=== PATIENT | female | born 1990 | race Two or more races ===

== ENCOUNTER 2024-01-30 19:58 | Emergency (ER) | payer MEDICAID, OTHER ==
[~2024-01-30] VITALS: Ht 157.5 cm; Wt 87.7 kg
[2024-01-30 21:14] LABS: Urine Bacteria FEW /hpf (None Seen); Urine Blood TRACE /uL (Negative); Urine Clarity Clear (Clear); Urine Color Colorless (Yellow); Urine Protein, UAD Negative (Negative); Urine Specific Gravity 1.029 (1.001-1.035); Urine Urobilinogen Normal (Negative); Urine WBC 10 /hpf (0 - 5); Urine pH 5.5 (5.0-9.0)
[2024-01-30] MEDS ORDERED: NITR-87 PO (21:35)
[2024-01-31] MEDS: KETOROLAC TROMETH 30 MG/ML 1ML VIAL IM ONE (01:44)
[2024-01-31 01:45] VITALS: BP 136/69; PULSE 70; RESP 16; O2SAT 99
== END 2024-01-31 01:50 | disposition home or self-care (01) ==
LOC: ER 19:58
DX: N39.0 Urinary tract infection, site not specified (principal)
CPT/HCPCS: 81001; 96372; 99283; J1885

== ENCOUNTER 2025-05-30 20:24 | Emergency (ER) | payer MEDICAID ==
[~2025-05-30] VITALS: Ht 157.5 cm; Wt 92.3 kg
[~2025-05-30 20:24] MED LIST: NITR-87 PO
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
[2025-05-30 21:43] VITALS: BP 132/71; RESP 18; TEMP 98.5; O2SAT 97
[2025-05-30] MEDS: ACETAMINOPHEN 325 MG TAB PO ONE (21:43)
[2025-05-30] MEDS: KETOROLAC TROMETH 30 MG/ML 1ML VIAL IM ONE (21:45)
[2025-05-31 00:26] VITALS: PULSE 78
--- NOTE | 2025-06-02 06:19 | ECG ---
[facility] Test Date: 2025-05-31 Test Time: 00:26:08 Pat Name: MARY WOLF Department: Room: Gender: F Fructose Loader: : 1990 Requested By: ALBERT CANTRELL Order Number: [id number] Reading MD: Measurements Intervals [place] Rate: 78 P: 69 WA: 168 QRS: 86 QRSD: 89 T: 58 QT: 414 QTc: 472 Interpretive Statements Sinus rhythm Please click the below link to view image of tracing.
== END 2025-05-31 01:00 | disposition home or self-care (01) ==
LOC: ER 20:24
DX: G44.309 Post-traumatic headache, unspecified, not intractable (principal); F07.81 Postconcussional syndrome; E10.9 Type 1 diabetes mellitus without complications; Z87.828 Personal history of other (healed) physical injury and trauma; Z79.899 Other long term (current) drug therapy
CPT/HCPCS: 36415; 70450; 84484; 96372; 99285; J1885